=== PATIENT | female | born 1940 | race Caucasian/White ===

== ENCOUNTER 2019-06-13 09:49 | Emergency (ER) | payer MEDICARE, OTHER ==
[~2019-06-13] VITALS: Ht 175.3 cm; Wt 90.7 kg
[~2019-06-13 09:49] MED LIST: ALLOPURINOL100 MG PO; ASPIR 8181 MG; CEFUROXIME250 MG PO; LISINOPRIL2.5 MG PO; METFORMIN HCL500 MG PO; MUCINEX DM ER1 EACH PO; VASOTEC10 MG; ZITHROMAX500 MG PO
--- OUTSIDE RECORDS SUMMARY | 2019-06-13 09:51 | XMS REPORT | Clinical Summary ---
Author Author [facility] Organization [facility] Address Unknown Phone Unavailable Care Team Providers Care Sugar Sampler Name Role Phone Feliz Barron MD PCP Allergies No Known Allergies Medications End Date Status Medication Sig Dispensed Refills Start Date Active allopurinol (ZYLOPRIM) Take 100 mg 0 100 MG tablet by mouth daily. Active metFORMIN (GLUCOPHAGE) Take 500 mg 0 500 mg tablet by mouth daily with breakfast. Active enalapril (VASOTEC) 5 MG Take 5 mg by 0 tablet mouth daily. Active BESIVANCE 0.6 % 0 drops,suspension 8 Active CONTOUR TEST STRIPS strip 2 (two) times 5 test strips a day. 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/2018 Encounters Care Team Description Date Type Specialty Daneil Matamoros MD Unilateral primary osteoarthritis, left knee (Primary Dx) 01/03/2019 Transcribe Physical Therapy Orders after 06/12/2018 Family History Medical History Relation Name Comments Macular degeneration Mother Relation Name Status Comments Mother Social History Date Tobacco Use Types Packs/Day Years Used Former Smoker Smokeless Tobacco: Never Used Comments: quit 40 years ago Alcohol Use Drinks/Week oz/Week Comments No Sex Assigned at Date Recorded Not on file Industry Job Start Date Occupation Not on file Not on file Not on file Travel End Travel History Travel Start No recent travel history available. Last Filed Vital Signs Not on file Plan of Treatment Health Maintenance Due Date Last Done Comments COLONOSCOPY SCREENING 1992 SHINGLES VACCINES (#1) 1992 65+ PNEUMOCOCCAL VACCINE 2007 (1 of 2 - PCV13) INFLUENZA VACCINE 06/07/2019 Implants Device Identifier Shelf Expiration Date Model / Serial / Lot Implanted Type Area Manufactur er 04/18/2018 PKP / [id number] / Tissue Corneal - [id number] - Ophthalmic Right: Eye [employer] [id number] Implants BANK Implanted: Qty: 1 on 04/07/2018 by Sean Gallegos MD Results Not on fileafter 06/12/2018 Insurance Type Payer Benefit Subscriber ID Effective Phone Address Plan / Dates Group HMO [employer] TEX[employer] xxxxxxxxx [id number] TESS resent Advance Directives Patient has advance care planning documents on file. For more information, wen rueda contact: [facility] [address] [place] [address]
--- OUTSIDE RECORDS SUMMARY | 2019-06-13 09:51 | XMS REPORT ---
Author Author [facility] Address Unknown Phone Unavailable Care Team Providers Care Director Operating Name Role Phone Unavailable Unavailable Payers Payer Name Policy Type Policy Number Effective Date Expiration Date Problems This patient has no known problems. Allergies, Adverse Reactions, Alerts Allergy Name Allergy Type Status Severity Reaction(s) Onset Date Inactive Date Treating Clinician Comments No Known Allergies DA Active U 2012-05-03 00:00:00 Medications This patient has no known medications. Results Test Description Test Time Test Comments Text Results Atomic Results Result Comments SCR MAMM BILATERAL LUIS E CAD DIGITAL 2018-12-18 09:20:54 - SCR MAMM BILATERAL LUIS E CAD DIGITALBILATERAL DIGITAL SCREENING MAMMOGRAM 3D/2D WITH CAD: 12/15/2018CLINICAL: Asymptomatic. Digital breast tomosynthesis was performed in addition to routine CC and MLO views. Current mammographic images were evaluated by either a [employer] M-Vu or a [employer] ImageChecker CAD (computer aided detection system). Comparison is made to exams dated 12/22/2016 mammogram, 11/08 mammogram, and 10/25/2013 mammogram - [facility]. There are scattered fibroglandular tissues in both breasts. No suspicious mass, architectural distortion, malignant type calcification, or lymph node abnormality detected. Breast architecture is stable compared to prior exams.IMPRESSION: NEGATIVEThere is no mammographic evidence of malignancy. Resume annual screening mammography in one year. Antonio Velazquez M.D. ss/penrad:12/18/2018 09:20:54 Yard Supervisor: Kenzie DELONG, [facility] sent: BIRADS 1-2 Normal Mammogram BI-RADS: 1 Negative
[2019-06-13] MEDS ORDERED: TRAMADOL HCL 50 MG TAB ONE (10:25)
--- NOTE | 2019-06-13 10:25 | Diagnostic Imaging Report ---
EXAMINATION: SHOULDER 2+VW LT -HOPD INDICATION: Trauma COMPARISON: None FINDINGS: 3 views of the left shoulder demonstrate no acute fracture or dislocation. Mild diffuse osteopenia. The visualized portions of the left lung appear clear. Atherosclerotic calcifications of the thoracic aorta. IMPRESSION: No acute osseous injury. Diffuse osteopenia. Signed by: Anusha Harrison MD on 06/13/2019 10:22 AM
[2019-06-13] MEDS ORDERED: ONDANSETRON HCL 4 MG ORAL DISINTEGRATING TAB ONE (10:27)
[2019-06-13] MEDS ORDERED: ONDANSETRON HCL 4 MG ORAL DISINTEGRATING TAB PO ONE (10:30)
[2019-06-13] MEDS ORDERED: TRAMADOL HCL 50 MG TAB PO ONE (10:30)
== END 2019-06-13 10:38 | disposition home or self-care (01) ==
LOC: FSED 09:49
DX: S43.52XA Sprain of left acromioclavicular joint, initial encounter (principal); W01.0XXA Fall on same level from slipping, tripping and stumbling without subsequent striking against object, initial encounter; Y92.481 Parking lot as the place of occurrence of the external cause; S43.422A Sprain of left rotator cuff capsule, initial encounter
CPT/HCPCS: 73030; 99283; Q0162

== ENCOUNTER 2019-08-08 15:15 | Emergency (ER) | payer MEDICARE ==
[~2019-08-08] VITALS: Ht 175.3 cm; Wt 93.0 kg
--- NOTE | 2019-08-08 15:53 | Diagnostic Imaging Report ---
EXAMINATION: FOOT 3 VIEW LT - HOPD INDICATION: Left foot pain COMPARISON: None FINDINGS: AP, lateral and oblique images of the left foot were obtained. No acute fracture or dislocation. Alignment is anatomic. Mild degenerative changes about the midfoot. Small plantar calcaneal spur. Tiny ossific fragment in the soft tissues of the left heel. IMPRESSION: No acute osseous injury. Tiny ossific fragment in the soft tissues of the heel may be related to remote injury. Small plantar calcaneal spur. Signed by: Anusha Harrison MD on 08/08/2019 3:49 PM
[2019-08-08] MEDS ORDERED: ULTRAM50 MG PO (15:58)
[2019-08-08] MEDS ORDERED: NAPROSYN500 MG PO (15:58)
--- NOTE | 2019-08-08 16:10 | NUR ---
PT PLACED IN ORTHO SHOE ON LEFT FOOT, PT STATED SHOE FEELS GOOD, QUICK CAP REFILL
== END 2019-08-08 16:12 | disposition home or self-care (01) ==
LOC: FSED 15:15
DX: M79.672 Pain in left foot (principal); S93.612A Sprain of tarsal ligament of left foot, initial encounter; M77.32 Calcaneal spur, left foot; E11.9 Type 2 diabetes mellitus without complications; I10 Essential (primary) hypertension; M10.9 Gout, unspecified
CPT/HCPCS: 99283